=== PATIENT | female | born 1935 | race Caucasian/White ===

== ENCOUNTER 2019-07-07 10:51 | Inpatient (IN) | payer OTHER ==
[~2019-07-07] VITALS: Ht 157.5 cm; Wt 61.2 kg
--- NOTE | ~2019-07-07 | OP ---
[address] [address] OPERATIVE REPORT Name: CLINTKALA M Room: [address] IN .R.#: [id number] Admission: 07/07/19 Attend Phys: Clarita Mcdonald MD Discharge: Date of : 33 Report #: [id number] THIS REPORT FOR: //name// CC: Clarita Gibson DATE OF SERVICE: 07/07/2019 PREOPERATIVE DIAGNOSIS: Left femoral neck fracture, closed, displaced. POSTOPERATIVE DIAGNOSIS: Left femoral neck fracture, closed, displaced. PROCEDURE: Left sherrell-hip arthroplasty. SURGEON: Junior Flowers D.O. ASSISTANTS: 1. Samy Corea D.O. 2. Thanh Gomez D.O. ANESTHESIA: General. ANTIBIOTICS: Ancef IV preoperatively. FLUIDS: 800 mL lactated Ringer's. BLOOD LOSS: 250 mL. COMPLICATIONS: None. SPECIMENS: None. DRAINS: None. CONDITION: The patient is stable to PACU. IMPLANTS: Biomet bipolar with size 9 Taperloc stem; standard-offset, standard-length 45-mm bipolar head and a 28-mm head component, +3 neck adapter. INDICATIONS FOR PROCEDURE: The patient was admitted to [facility] with left hip fracture after a mechanical fall. Our consultation was requested, recommended sherrell-hip arthroplasty. She was cleared by medical team. I went over the diagnosis, treatment options, plan of surgery and risks, benefits, and complications in detail. Please see the consultation note for full details of the discussion had. We obtained written consent to proceed after they acknowledged and [place] [address] OPERATIVE REPORT Name: KALA JARAMILLO Sondra Room: [address] IN M.R.#: [id number] Admission: 07/07/19 Attend Phys: Clarita Mcdonald MD Discharge: Date of : 33 Report #: [id number] DESCRIPTION OF PROCEDURE: I marked the left lower extremity in the presence of the operative team members. Everyone agreed this was correct. She was taken back to the operative suite where a briefing was performed indicating correct patient, procedure, site, antibiotics and that implants were present and sterile. All team members agreed. General anesthetic was administered. She was then transferred over to the operative table. She was placed in the right lateral decubitus position, well-padded and secured. The left lower extremity was sterilely prepped and draped in standard fashion. Timeout was performed indicating correct patient, procedure, site, antibiotics and that implants were present and sterile. All team members agreed. Marked out an incision for an anterolateral approach, scalpel through skin, dissection down to full-thickness flaps to the IT band and fascial layers incised this with a secondary scalpel and completed proximally and distally with scissors. Charnley retractor placed deep. She had already torn the medius tendon completely off the trochanter with some minor retraction. The minimus tendon remained attached. We continued incising this off. We did leave some attached to the tip of the trochanter. The capsule was incised with a secondary layer with a T capsulotomy. We then delivered the fracture into the field 1 fingerbreadth above the lesser trochanter. We cleaned up the neck cut with a reciprocating saw. We then removed the head and neck sized on the back table to 45. Forty-five was placed into the acetabulum and had excellent fit and fill and good suction. The labrum was left intact. We then removed our trial head and began preparing the femur, box osteotome to lateralize our canal finder, broaching up to a size 9. Size 9 had excellent fit, fill and rotational stability. We trialed off that size 9, standard neck offset and a standard neck length, 45 bipolar. She had good fit and fill with this by checking her leg lengths, by judging off the inferior pole of the patella with the feet equal. She was somewhat short and she did have some instability when taking the leg into drop-down position. Prior to dislocating the components, we had also performed a shuck test showing that her offset was appropriate. We then dislocated the hip, removed all trial components. The final size 9 stem was thrown on to the back table, standard offset, standard length. After an implant timeout confirmed, we irrigated with normal saline down the canal. I implanted the final stem. The final stem sat at the exact same location as the trial. We, therefore, trialed a +3. Once we had reduced this, our leg lengths were more appropriate and equal and there was excellent stability throughout all planes of range of motion. We then dislocated the hip, removed the trial head and neck. Final 45-mm bipolar and 28 head and ____ adapter were assembled, impacted and engaging the Abad taper. With all final components in place, we then reduced the hip again through full range of motion, excellent stability throughout all planes. No instability could be found. Leg lengths were judged to be excellent based on judgment of the inferior pole of patella and the big flap. We irrigated thoroughly with normal saline. Closed our capsule layer with #1 Vicryl xijjia-sk-fetic interrupted. We repaired the gluteus minimus back to bone with a #5 Tycron suture through bone sutures and oversewn with #1 Vicryl[place] [address] OPERATIVE REPORT Name: KALA JARAMILLO Room: [address] IN M.R.#: [id number] Admission: 07/07/19 Attend Phys: Clarita Mcdonald MD Discharge: Date of : 33 Report #: [id number] layer were closed with #1 Vicryl xamovb-se-ntfyo interrupted and then oversewn with #1 Stratafix, irrigated the subcutaneous layer with normal saline and this was closed with 0 Vicryl running suture deep, 2-0 Monocryl buried deep subQ, and then a running subcuticular stitch with Stratafix. Debriefing performed where we confirmed procedure, blood loss and that all counts were correct and final all team members agreed. Dermabond glue applied. Sterile Mepilex dressing placed. She was transferred off the operative table back onto her bed in the supine position. By judging her leg lengths, she was equal. We then placed an adductor pillow. She was transferred to PACU after being extubated successfully in stable condition. POSTOPERATIVE COURSE AND EVALUATION: I spoke with her family, addressed any questions they had. They are very thankful for my time and efforts. She was resting in PACU with stable vital signs, pain controlled, neurovascularly intact in all her extremities. Dressing clean, dry and intact. PACU films showed stable prosthesis in good position and alignment. No obvious evidence of fracture, dislocation or pathologic process. She will be weightbear as tolerated. Anterolateral hip precautions. DVT prophylaxis will be pharmacological and mechanical. She is going back to the telemetry unit. We noted by the medical team and encouraged them to call anytime with questions or concerns. Case management will also help with discharge planning. It should be noted that I will be in other hospitals, and I directly went over this case with my partners, and they know they can call anytime with questions or concerns, that they will be covering for me in regards to rounds if I could not make it back up to the hospital. By: 1825 [id number] Flowers DO /nt
--- NOTE | ~2019-07-07 | PROC ---
[address] [address] PROCEDURE REPORT Name: KALA JARAMILLO Room: [address] IN M.R.#: [id number] Admission: 07/07/19 Attend Phys: Clarita Mcdonald MD Discharge: Date of : 33 Report #: [id number] THIS REPORT FOR: //name// For GI report, Please see Provation report in Perceptive 7 content. By: 0643Medical Records Staff LINWOOD /CLEM
[~2019-07-07 10:51] MED LIST: D3 + K2 DOTS 11 EACH PO; LEVOTHYROXIN0.088 MG PO; NORCO 5-325 TA1 EACH PO; ONE A DAY VITAMIN; TUMS PO
[2019-07-07 11:00] VITALS: BP 132/69
[2019-07-07 11:13] LABS: ABSOLUTE EOSINOPHILS 0.2 thou/uL (0.0-0.7); ABSOLUTE LYMPHOCYTES 1.6 thou/uL (0.8-5.3); ABSOLUTE MONOCYTES 0.4 thou/uL (0.0-1.2); ABSOLUTE NEUTROPHILS 2.9 thou/uL (1.6-8.1); BASOPHILS 0.8 %; EOSINOPHILS 2.9 %; HEMATOCRIT 40.8 % (37.0-47.0); HEMOGLOBIN 13.3 gm/dL (12.0-15.0); LYMPHOCYTES 32.1 %; MCH 30.5 pg (26.0-34.0); MCHC 32.6 g/dL (28.0-37.0); MCV 93.6 fL (80.0-100.0); MONOCYTES 7.5 %; MPV 7.1 fl. (7.2-11.1); NUCLEATED RBCS 0 /100WBC; PLATELET COUNT* 329 thou/uL (150-400); POLYS 56.7 %; RBC 4.36 mil/uL (4.20-5.00); RDW-CV 14.1 % (10.5-14.5); WBC 5.1 thou/uL (4.0-11.0)
[2019-07-07 11:26] LABS: ANION GAP 8 mmol/L (7-16); BUN 21 mg/dL (7-18); CALCIUM 8.6 mg/dL (8.5-10.1); CHLORIDE 105 mmol/L (98-107); CO2 27 mmol/L (21-32); CREATININE 0.8 mg/dL (0.6-1.3); GLUCOSE 124 mg/dL (70-99); POTASSIUM 3.5 mmol/L (3.5-5.1); SODIUM 140 mmol/L (136-145)
[2019-07-07 11:32] LABS: ALBUMIN 3.5 g/dL (3.4-5.0); ALKALINE PHOSPHATASE 77 U/L (46-116); SGOT 23 U/L (15-37); SGPT 22 U/L (30-65); TOTAL BILIRUBIN 0.7 mg/dL (<0.1-1.0); TOTAL PROTEIN 6.8 g/dL (6.4-8.2); TROPONIN-I LEVEL <0.06 ng/mL (<0.06)
[2019-07-07 12:05] LABS: URINE BILIRUBIN NEGATIVE (Negative); URINE BLOOD NEGATIVE (Negative); URINE CLARITY CLEAR; URINE COLOR YELLOW; URINE GLUCOSE-RANDOM NEGATIVE (Negative); URINE KETONES TRACE (Negative); URINE LEUKOCYTES-REFLEX 1+ (Negative); URINE NITRITE-REFLEX POSITIVE (Negative); URINE PROTEIN NEGATIVE (Negative); URINE SPECIFIC GRAVITY 1.025 (1.005-1.030); URINE UROBILINOGEN 0.2 E.U./dl (0.2-1.0)
[2019-07-07 12:15] LABS: BACTERIA-REFLEX >30 Many /HPF (None Seen); CASTS None Seen /LPF (None Seen); CRYSTALS None Seen /LPF (None Seen); MUCUS 0-3 Light strn/LPF (None Seen); SQUAMOUS 0-3 Few /LPF (0-3); URINE RBC 0-2 Rare /HPF (0-2)
[2019-07-07 12:20] VITALS: BP 132/69
[2019-07-07 12:50] VITALS: BP 142/69
[2019-07-07 13:57] VITALS: BP 106/61
--- NOTE | 2019-07-07 16:45 | 2DMMODE ---
[place] [address] 2 D/M-MODE ECHOCARDIOGRAM Name: KALA JARAMILLO Room: [address] IN [facility]#: [id number] Admission: 07/07/19 Attend Phys: Clarita Mcdonald, Discharge: Date of : 31 Date of Service: 07/07/19 1645 Report #: [id number] THIS REPORT FOR: //name// APPROVED REPORT Study performed: 07/07/2019 13:55:07 EXAM: Comprehensive 2D, Doppler, and color-flow Echocardiogram Patient Location: In-Patient Room #: [facility] Status: routine BSA: 1.63 HR: 69 bpm BP: 142/69 mmHg Rhythm: NSR Other Information Study Quality: Good Indications Abnormal ECG Pre-Op 2D Dimensions IVSd: 12.43 (7-11mm) LVOT Diam: 17.72 (18-24mm) LVDd: 43.26 mm PWd: 11.30 (7-11mm) Ascending Ao: 36.04 (22-36mm) LVDs: 23.47 (25-40mm) Aortic Root: 34.35 mm Volumes Left Atrial Volume (Systole) LA ESV Index: 31.90 mL/m2 Aortic Valve AoV Peak Gustavo.: 1.59 m/s AO Peak Gr.: 10.10 mmHg LVOT Max P.77 mmHg AO Mean Gr.: 4.94 mmHg LVOT Mean P.57 mmHg LVOT Max V: 0.97 m/s AO V2 VTI: 26.33 cm LVOT Mean V: 0.57 m/s RICARDO (VTI): 2.34 cm2 LVOT V1 VTI: 24.95 cm Mitral Valve E/A Ratio: 0.86 MV Decel. Time: 168.33 [place] [address] 2 D/M-MODE ECHOCARDIOGRAM Name: KALA JARAMILLO Room: [address] IN .R.#: [id number] Admission: 07/07/19 Attend Phys: Clarita Mcdonald, Discharge: Date of : 31 Date of Service: 07/07/19 1645 Report #: [id number] MV E Max Gustavo.: 0.90 m/s MV PHT: 48.82 ms MVA (PHT): 4.51 cm2 TDI E/Lateral E': 8.18 E/Medial E': 6.92 Medial E' Gustavo.: 0.13 m/s Lateral E' Gustavo.: 0.11 m/s Pulmonary Valve PV Peak Gustavo.: 0.86 m/s PV Peak Gr.: 2.97 mmHg Tricuspid Valve RAP Estimate: 5.00 mmHg TR Peak Gr.: 31.61 mmHg RVSP: 36.00 mmHg PA Pressure: 36.00 mmHg Left Ventricle The left ventricle is normal size. There is normal LV segmental wall motion. Mild concentric left ventricular hypertrophy. Left ventricular systolic function is normal. The left ventricular ejection fraction is within the normal range. LVEF is 60-65%. Grade I - abnormal relaxation pattern. Right Ventricle The right ventricle is normal size. The right ventricular systolic function is normal. Atria Left atrium is mildly dilated. The right atrium size is normal. Aortic Valve Mild aortic valve sclerosis. No aortic regurgitation is present. There is no aortic valvular stenosis. Mitral Valve The mitral valve is normal in structure. There is no mitral valve regurgitation noted. No evidence of mitral valve stenosis. Tricuspid Valve The tricuspid valve is normal in structure. Mild tricuspid regurgitation. Mild pulmonary hypertension. Pulmonic Valve The pulmonary valve is normal in structure[place] [address] 2 D/M-MODE ECHOCARDIOGRAM Name: KALA JARAMILLO Sondra Room: [address]#: [id number] Admission: 07/07/19 Attend Phys: Clarita Mcdonald, Discharge: Date of : 31 Date of Service: 07/07/19 1645 Report #: [id number] regurgitation. Great Vessels The aortic root is normal in size. IVC is normal in size and collapses >50% with inspiration. Pericardium There is no pericardial effusion. <Conclusion> The left ventricle is normal size. Mild concentric left ventricular hypertrophy. Left ventricular systolic function is normal. The left ventricular ejection fraction is within the normal range. LVEF is 60-65%. Grade I - abnormal relaxation pattern. The right ventricle is normal size. Left atrium is mildly dilated. The right atrium size is normal. Mild aortic valve sclerosis. No aortic regurgitation is present. There is no aortic valvular stenosis. The mitral valve is normal in structure. The tricuspid valve is normal in structure. IVC is normal in size and collapses >50% with inspiration. There is no pericardial effusion. There is normal LV segmental wall motion. <ELECTRONICALLY SIGNED> By: Eliseo Carey MD, FACC 07/07/19 1645 44 44 Eliseo Carey MD, FACC /INF
[2019-07-07 18:45] VITALS: BP 146/87
[2019-07-07 20:00] VITALS: BP 120/65
[2019-07-08] VITALS: BP 104/60
[2019-07-08 04:00] VITALS: BP 105/48
[2019-07-08 04:24] LABS: HEMOGLOBIN 11.9 gm/dL (12.0-15.0); MCH 30.9 pg (26.0-34.0); MCHC 32.3 g/dL (28.0-37.0); MCV 95.6 fL (80.0-100.0); MPV 7.6 fl. (7.2-11.1); RBC 3.86 mil/uL (4.20-5.00); RDW-CV 14.3 % (10.5-14.5); WBC 8.7 thou/uL (4.0-11.0)
[2019-07-08 04:47] LABS: ALBUMIN 2.9 g/dL (3.4-5.0); CALCIUM 7.8 mg/dL (8.5-10.1); CREATININE 0.8 mg/dL (0.6-1.3); MAGNESIUM 2.1 mg/dL (1.8-2.4); TOTAL BILIRUBIN 0.6 mg/dL (<0.1-1.0)
[2019-07-08 08:00] VITALS: BP 92/57
--- NOTE | 2019-07-08 09:23 | EKG ---
[place] [address] ELECTROCARDIOGRAM REPORT Name: KALA JARAMILLO Room: [address] ADM IN M.R.#: [id number] Admission: 07/07/19 Attend Phys: Clarita Mcdonald MD Discharge: Date of : 33 Report #: [id number] THIS REPORT FOR: //name// 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 : 1935 Requested By: Meena Jean Order Number: [id number] MD: Chava Oliveira Measurements Intervals [place] Rate: 90 P: -86 [place]: 172 QRS: -21 QRSD: 87 T: 35 QT: 380 QTc: 465 Interpretive Statements Sinus rhythm with frequent PACs Borderline left axis deviation Consider anteroseptal infarct, old Compared to ECG 08/22/2015 18:23:11 Atrial premature complex(es) now present Myocardial infarct finding now present ST (T wave) deviation no longer present Electronically Signed On 07-08-2019 9:23:40 CDT by Chava Oliveira [email or web address] <ELECTRONICALLY SIGNED> By: Chava Oliveira MD, FACC 07/08/19 0923 1100 1100 Chava Oliveira MD, FACC /EPI
[2019-07-08 12:00] VITALS: BP 102/46
[2019-07-08 21:00] VITALS: BP 142/64
[2019-07-09 05:31] LABS: HEMATOCRIT 37.3 % (37.0-47.0)
[2019-07-09 08:10] VITALS: BP 114/85
[2019-07-09 17:01] VITALS: BP 123/48
[2019-07-10 08:00] VITALS: BP 137/66
[2019-07-10 22:00] VITALS: BP 132/58
[2019-07-11 08:00] VITALS: BP 150/72
[2019-07-11 16:00] VITALS: BP 113/54
[2019-07-11 19:50] VITALS: BP 106/45
[2019-07-12 09:13] VITALS: BP 138/93
[2019-07-12 09:32] LABS: URINE BLOOD NEGATIVE (Negative); URINE CLARITY CLEAR; URINE COLOR DARK YELLOW; URINE GLUCOSE-RANDOM NEGATIVE (Negative); URINE KETONES TRACE (Negative); URINE NITRITE-REFLEX NEGATIVE (Negative); URINE PROTEIN 1+ (Negative); URINE SPECIFIC GRAVITY 1.015 (1.005-1.030)
[2019-07-12 09:35] LABS: URINE BILIRUBIN 1+ (Negative); URINE LEUKOCYTES-REFLEX 3+ (Negative)
[2019-07-12 09:39] LABS: ICTOTEST (BILI CONFIRMATORY) Negative (Negative)
[2019-07-12 09:45] LABS: SQUAMOUS >10 Many /LPF (0-3); URINE RBC None Seen /HPF (0-2)
[2019-07-12 09:46] LABS: BACTERIA-REFLEX >30 Many /HPF (None Seen); CRYSTALS None Seen /LPF (None Seen)
[2019-07-12 09:47] LABS: MUCUS >6 Heavy strn/LPF (None Seen)
[2019-07-12 09:48] LABS: HYALINE CASTS 0-3 Few /LPF (None Seen)
[2019-07-12 16:00] VITALS: BP 144/82
[2019-07-12 20:58] VITALS: BP 132/70
[2019-07-13 10:02] VITALS: BP 132/68
[2019-07-13 16:06] VITALS: BP 131/79
[2019-07-13 21:33] VITALS: BP 125/52
[2019-07-13 22:40] VITALS: BP 137/70
[2019-07-14 04:00] VITALS: BP 155/81
[2019-07-14 08:00] VITALS: BP 129/71
[2019-07-14 12:03] VITALS: BP 120/4
--- NOTE | 2019-07-14 14:36 | EKG ---
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1935 Requested By: Clarita Mcdonald Order Number: [id number] Reading MD: Oc Mendoza Measurements Intervals [place] Rate: 78 P: 18 [place]: 117 QRS: -25 QRSD: 81 T: 41 QT: 373 QTc: 425 Interpretive Statements Sinus rhythm Atrial premature complex Borderline short OK interval LVH by voltage Anterior Q waves, possibly due to LVH Compared to ECG 07/07/2019 11:00:25 Left ventricular hypertrophy now present Electronically Signed On 07-14-2019 14:35:55 CDT by Oc Mendoza [email or web address] <ELECTRONICALLY SIGNED> By: Oc Mendoza MD, FAC 07/14/19 1435 1154 1154 Oc Mendoza MD, [facility] /EPI
[2019-07-14 16:55] VITALS: BP 131/71
[2019-07-14 20:10] VITALS: BP 131/60
[2019-07-15] VITALS: BP 107/47
[2019-07-15 04:00] VITALS: BP 100/48
[2019-07-15 04:25] LABS: HEMATOCRIT 34.6 % (37.0-47.0); HEMOGLOBIN 11.1 gm/dL (12.0-15.0); MCH 30.8 pg (26.0-34.0); MCHC 32.2 g/dL (28.0-37.0); MCV 95.7 fL (80.0-100.0); MPV 7.3 fl. (7.2-11.1); RBC 3.62 mil/uL (4.20-5.00); RDW-CV 14.1 % (10.5-14.5); WBC 6.2 thou/uL (4.0-11.0)
[2019-07-15 04:41] LABS: CALCIUM 8.3 mg/dL (8.5-10.1); CREATININE 0.8 mg/dL (0.6-1.3); MAGNESIUM 2.2 mg/dL (1.8-2.4); POTASSIUM 4.2 mmol/L (3.5-5.1)
[2019-07-15 08:00] VITALS: BP 99/63
--- NOTE | 2019-07-15 10:45 | CON ---
[address] [address] CONSULTATION Name: KALA JARAMILLO Room: [address] IN M.R.#: [id number] Admission: 07/07/19 Attend Phys: Clarita Mcdonald MD Discharge: Date of : 33 Report #: [id number] THIS REPORT FOR: //name// CC: Clarita Gibson DATE OF SERVICE: 07/12/2019 HISTORY OF PRESENT ILLNESS: This is an 84-year-old female patient who was evaluated by me for memory problems. The provided history. The patient does not remember much. It looks like the patient's symptoms started about 2 years ago. It appeared to have started with short-term memory loss. The gives an example that she will ask a question and they will answer that question and she will ask the same question again. She basically has repetition, and from the history, it looks like it was mainly for the short-term memory. It started spontaneously without any trauma and then progressed slowly over a period of time. She broke her hip and she underwent anesthesia. She was pretty confused after anesthesia. She became somewhat better, but then became confused again. She has been fluctuating. She has not had any workup for dementia as an outpatient. She is not on any medications for dementia. REVIEW OF SYSTEMS: Her 14-point review of system was carried out with the . It looks like the patient has a history consistent with dementia. She also has a shoulder problem. It looks like it is longstanding. They indicated that she has a shoulder problem for a couple of years. She had a knee replaced several years ago. She had a history of carpal tunnel surgery and hypothyroidism the way I understand. She is not complaining of any new eye, ENT, cardiac, respiratory, GI, , constitutional, dermatological, hematological, psychiatric, throat, allergic symptoms associated with present symptomatology. PAST MEDICAL HISTORY: Positive for what looks like dementia for 1 year. FAMILY HISTORY: Unremarkable. SOCIAL HISTORY: She has a prior history of smoking. She does not drink any alcohol. PHYSICAL EXAMINATION: NEUROLOGIC: Indicate she is alert, responsive, able to follow simple and complex command, but she is disoriented. She does not know what month it, who the president is and what hospital she is in. [place] [address] CONSULTATION Name: KALA JARAMILLO Room: [address]#: [id number] Admission: 07/07/19 Attend Phys: Clarita Mcdonald MD Discharge: Date of : 33 Report #: [id number] nerve examination 2-12 looks unremarkable. She moves all 4 extremities. Movement in the right shoulder is significantly restricted. Neuromuscular examination is difficult because of the patient's hip surgery, but position sense looks intact. Tone looks symmetrical and reflexes the best it could be looks symmetrical. Myklym-wh-bvhb looks unremarkable. No cerebellar signs were detected. Pulses appeared to be palpable. SKIN: There is no edema, cyanosis or jaundice. CARDIAC: Examinations appear unremarkable. RESPIRATORY: No respiratory difficulty or rhonchi was noticed. VITAL SIGNS: Blood pressure is 144/82, respirations 17, pulse is 84, temperature 97.8. LABORATORY DATA: White count is 8.7. Her calcium is only 7.8, but TSH and vitamin B12 is normal. IMPRESSION: This patient's clinical presentation is consistent with dementia. It got decompensated with surgery as well as anesthesia and that is typical. She never had any imaging study of the brain and it may be desirable to do a CT scan of the head to make sure there is no treatable cause for dementia. She already has a TSH and vitamin B12 checked. She has a shoulder problem on the right side, but that is longstanding. I discussed the situation with the . I told them that she can be tried on Aricept, Namenda, or Exelon, but that should be done as an outpatient after she recuperates from present condition. I will get a CT and an EEG done. I discussed the procedure and they want to do that. We will get it done tomorrow, and if that is okay, the patient can follow up with us as an outpatient after she recuperates from her surgery and we can start her on Namenda or Exelon or a combination of both. She can be started in group home facility also. Thank you very much for this referral, and if you have any questions, please feel free to contact me. <ELECTRONICALLY SIGNED> By: Carlos Valdez MD 07/15/19 1045 01 [id number] Valdez MD /nt
--- NOTE | 2019-07-15 10:45 | EEG ---
[address] [address] EEG STUDY REPORT Name: KALA JARAMILLO Room: [address] IN M.R.#: [id number] Admission: 07/07/19 Attend Phys: Clarita Mcdonald MD Discharge: Date of : 33 Report #: [id number] THIS REPORT FOR: //name// CC: Clarita Gibson DATE OF SERVICE: 07/13/2019 This patient is being evaluated for altered mental status. EEG was done by placing the electrode by standard 10-20 system of electrode placement. Both referential and sequential montages were used for recording. Background activity in this patient's EEG is about 8 Hz and 30 microvolt. It is intermixed with theta range slowing. The patient became drowsy and that is associated with bilateral slowing and vertex sharp waves. Photic stimulation is unremarkable. Throughout the record, no active epileptiform activity was noticed. IMPRESSION: This EEG is intermixed with some theta range slowing on both sides. That is a nonspecific abnormality, which can occur with encephalopathy, drowsiness, effect of psychotropic medication, dementia, etc. Clinical correlation is recommended. <ELECTRONICALLY SIGNED> By: Carlos Valdez MD 07/15/19 1045 1513 1719Carlos Valdez MD /nt
[2019-07-15 11:30] VITALS: BP 112/59
[2019-07-15 16:00] VITALS: BP 149/89
[2019-07-15 20:10] VITALS: BP 97/52
[2019-07-16] VITALS: BP 116/77
[2019-07-16 04:00] VITALS: BP 124/54
[2019-07-16 12:11] VITALS: BP 100/56
[2019-07-16 15:43] VITALS: BP 114/69
[2019-07-16 19:30] VITALS: BP 141/60
[2019-07-16 20:08] LABS: HEMATOCRIT 39.4 % (37.0-47.0); HEMOGLOBIN 12.7 gm/dL (12.0-15.0)
[2019-07-16 23:54] LABS: HEMATOCRIT 34.7 % (37.0-47.0); HEMOGLOBIN 11.4 gm/dL (12.0-15.0)
[2019-07-17] VITALS: BP 117/93; BP 143/46
[2019-07-17 04:00] VITALS: BP 130/62
[2019-07-17 04:58] LABS: HEMATOCRIT 38.4 % (37.0-47.0); HEMOGLOBIN 12.2 gm/dL (12.0-15.0); MCH 30.2 pg (26.0-34.0); MCHC 31.8 g/dL (28.0-37.0); MCV 95.1 fL (80.0-100.0); MPV 6.9 fl. (7.2-11.1); RBC 4.04 mil/uL (4.20-5.00); WBC 8.1 thou/uL (4.0-11.0)
[2019-07-17 05:07] LABS: CALCIUM 8.3 mg/dL (8.5-10.1); CREATININE 0.7 mg/dL (0.6-1.3); MAGNESIUM 2.1 mg/dL (1.8-2.4); POTASSIUM 3.7 mmol/L (3.5-5.1)
[2019-07-17 11:53] VITALS: BP 128/70
[2019-07-17 16:47] VITALS: BP 103/65
[2019-07-17 18:13] LABS: HEMATOCRIT 36.7 % (37.0-47.0)
[2019-07-17 21:07] VITALS: BP 120/57
[2019-07-18 04:00] VITALS: BP 156/60
[2019-07-18 05:26] LABS: HEMATOCRIT 35.1 % (37.0-47.0); HEMOGLOBIN 11.4 gm/dL (12.0-15.0); MCH 30.7 pg (26.0-34.0); MCHC 32.5 g/dL (28.0-37.0); MCV 94.7 fL (80.0-100.0); MPV 6.6 fl. (7.2-11.1); RBC 3.7 mil/uL (4.20-5.00); RDW-CV 13.9 % (10.5-14.5); WBC 6.5 thou/uL (4.0-11.0)
[2019-07-18 05:42] LABS: CALCIUM 8.7 mg/dL (8.5-10.1); CREATININE 0.8 mg/dL (0.6-1.3); MAGNESIUM 2.3 mg/dL (1.8-2.4)
[2019-07-18 08:00] VITALS: BP 119/56
[2019-07-18 11:08] LABS: URINE BILIRUBIN NEGATIVE (Negative); URINE BLOOD NEGATIVE (Negative); URINE CLARITY CLEAR; URINE COLOR YELLOW; URINE GLUCOSE-RANDOM NEGATIVE (Negative); URINE KETONES TRACE (Negative); URINE LEUKOCYTES-REFLEX 1+ (Negative); URINE NITRITE-REFLEX NEGATIVE (Negative); URINE PROTEIN NEGATIVE (Negative); URINE SPECIFIC GRAVITY 1.025 (1.005-1.030); URINE UROBILINOGEN 0.2 E.U./dl (0.2-1.0)
[2019-07-18 11:24] LABS: SQUAMOUS >10 Many /LPF (0-3)
[2019-07-18 11:25] LABS: URINE WBC-REFLEX 6-15 Few /HPF (0-5)
[2019-07-18 11:26] LABS: MUCUS >6 Heavy strn/LPF (None Seen); URINE RBC 0-2 Rare /HPF (0-2)
[2019-07-18 11:27] LABS: CRYSTALS None Seen /LPF (None Seen); HYALINE CASTS 0-3 Few /LPF (None Seen); YEAST-REFLEX Present (None Seen)
[2019-07-18 12:00] VITALS: BP 108/51
[2019-07-18 16:00] VITALS: BP 106/53
[2019-07-18 20:00] VITALS: BP 105/46
[2019-07-19] VITALS: BP 99/62
[2019-07-19 04:00] VITALS: BP 115/50
[2019-07-19 07:25] LABS: HEMATOCRIT 35.9 % (37.0-47.0); HEMOGLOBIN 11.7 gm/dL (12.0-15.0); MCH 30.8 pg (26.0-34.0); MCHC 32.5 g/dL (28.0-37.0); MCV 94.7 fL (80.0-100.0); MPV 7.1 fl. (7.2-11.1); RBC 3.79 mil/uL (4.20-5.00); RDW-CV 13.8 % (10.5-14.5); WBC 7.4 thou/uL (4.0-11.0)
[2019-07-19 07:40] LABS: CALCIUM 8.2 mg/dL (8.5-10.1); CREATININE 0.8 mg/dL (0.6-1.3); POTASSIUM 3.7 mmol/L (3.5-5.1)
[2019-07-19 08:00] VITALS: BP 117/58
[2019-07-19 12:10] VITALS: BP 117/58
[2019-07-19 12:55] VITALS: BP 161/74
[2019-07-19 20:00] VITALS: BP 121/53
[2019-07-20] VITALS: BP 121/49
[2019-07-20 04:00] VITALS: BP 110/45
[2019-07-20 08:00] VITALS: BP 113/84
[2019-07-20 12:20] VITALS: BP 96/46
[2019-07-20 16:40] VITALS: BP 115/53
[2019-07-20 21:09] VITALS: BP 132/55
[2019-07-21] VITALS: BP 136/67
[2019-07-21 04:00] VITALS: BP 146/69
[2019-07-21 04:50] LABS: HEMATOCRIT 35.1 % (37.0-47.0); HEMOGLOBIN 11.3 gm/dL (12.0-15.0); MCH 30.8 pg (26.0-34.0); MCHC 32.3 g/dL (28.0-37.0); MCV 95.3 fL (80.0-100.0); MPV 7.5 fl. (7.2-11.1); RBC 3.68 mil/uL (4.20-5.00); RDW-CV 13.9 % (10.5-14.5); WBC 9.5 thou/uL (4.0-11.0)
[2019-07-21 05:00] LABS: CALCIUM 8.6 mg/dL (8.5-10.1); CREATININE 0.6 mg/dL (0.6-1.3); POTASSIUM 3.9 mmol/L (3.5-5.1)
[2019-07-21 07:00] VITALS: BP 122/58
[2019-07-21] MEDS ORDERED: COLACE 100 MG100 MG PO (11:42)
[2019-07-21] MEDS ORDERED: FLUCONAZOLE 10100 MG PO (11:42)
[2019-07-21] MEDS ORDERED: PROTONIX40 M1 PO (11:42)
[2019-07-21] MEDS ORDERED: LOPRESSOR25 PO (11:42)
[2019-07-21] MEDS ORDERED: ELIQUIS5 MG PO ×2 (11:42→11:46)
[2019-07-21] MEDS ORDERED: RISPERIDONE 1 MG1 MG PO (11:42)
[2019-07-21] MEDS ORDERED: ACETAMINOPHEN325 M1 PO (11:42)
[2019-07-21] MEDS ORDERED: FOSAMAX 70 MG T70 MG PO (11:44)
[2019-07-21 13:01] VITALS: BP 113/52
--- NOTE | 2019-07-21 14:06 | PATH ---
[facility] [address] [place] [address] PATHOLOGY RPT PROCEDURE Name: CARLENE JARAMILLO Room: [address] IN ..#: [id number] Admission: 07/07/19 Date of : 33 Discharge: Report #: [id number] Path Case #: [id number] [facility] Accession Number: [id number] . 01 Material submitted: . esophagus - BARRETTS ESOPHAGUS RULE OUT DYSPLASIA . 01 Clinical history: . Rule out dysplasia . 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 (CHARLY/db; 07/21/2019) LBQ/07/21/2019 . 02 Electronically signed: . Ean Willis MD, Pathologist NPI- [id number] . 01 Gross description: . The specimen is received in formalin, labeled "Todt, Carlene, Azar's esophagus" and consists of 2 fragments of marti tissue measuring 0.2 x 0.2 cm and 0.3 x 0.2 cm which are entirely submitted in A1. (SDY; 07/20/2019) SYU/SYU . 02 Pathologist provided ICD-10: K22.70, K20.9 . 02 CPT . 312274 Specimen Comment: A courtesy copy of this report has been sent to Specimen Comment: [phone], , . Specimen Comment: Report sent to ,DR MARTIN / DR العراقي Performed at: [address], [place], [place] [address] MD Obinna Crockett MD Phone: [phone] Performed at: [address] [facility] [address], [place], [place] [id number] MD Ean Willis MD Phone: [phone]
[2019-07-21 16:27] VITALS: BP 99/61
[2019-07-21 20:29] VITALS: BP 121/64
[2019-07-22] VITALS: BP 146/54
[2019-07-22 04:00] VITALS: BP 119/59
[2019-07-22 07:00] VITALS: BP 120/57
[2019-07-22 11:28] VITALS: BP 150/72
[2019-07-22] MEDS ORDERED: NORCO 5-325 TA1 EAC1 PO (13:48)
[2019-07-22 13:53] VITALS: BP 150/72
--- NOTE | 2019-07-22 14:07 | CON ---
[address] [address] CONSULTATION Name: KALA JARAMILLO Room: [address] IN .R.#: [id number] Admission: 07/07/19 Attend Phys: Clarita Mcdonald MD Discharge: Date of : 33 Report #: [id number] THIS REPORT FOR: //name// CC: Clarita Gibson DATE OF SERVICE: 07/17/2019 REASON FOR CONSULT: Blood in stool. HISTORY OF PRESENT ILLNESS: This is an 84-year-old female with recent history of left femur fracture, who underwent a repair and yesterday was noted to have rectal bleeding. Her hemoglobin never dropped and remains around 12. She has what appears to be dark maroon stool. She is also hemodynamically stable. The patient had a colonoscopy by my colleague, Dr. Garrett back in 11/2014 where there was a bleeding episode. No source of bleeding was found at that time. She had diffuse pandiverticulosis, which was noted in that colonoscopy. Her WAP-gi-mzpckulntf ratio as of yesterday was almost 35. She was given Eliquis after her surgery, which most probably prompted her bleeding. She currently denies any GI symptoms as she denies nausea, vomiting, dyspepsia, GERD, diarrhea or constipation. PAST MEDICAL HISTORY: Significant for recent history of left hip fracture, hypothyroidism, history of arthroscopy of right and left in 2006. Carpal tunnel surgery and history of GI bleeds in the past. ALLERGIES: No known drug allergy. MEDICATIONS: Please refer to MAR. SOCIAL HISTORY: The patient lives at home. She is mildly demented. The is by her bedside and there is no history of tobacco or alcohol use. FAMILY HISTORY: Noncontributory. PHYSICAL EXAMINATION: VITAL SIGNS: Reveals blood pressure of 128/70, respirations 18, pulse 92 and temperature 97.4. LUNGS: Clear. CARDIOVASCULAR: Regular. ABDOMEN: Soft, nontender, nondistended. Bowel sounds are positive. NEUROLOGIC: The patient is alert and oriented. LABORATORY DATA: Labs revealed sodium of 140, potassium 3.7, BUN is 24, [place] [address] CONSULTATION Name: KALA JARAMILLO Sondra Room: [address] IN [facility]#: [id number] Admission: 07/07/19 Attend Phys: Clarita Mcdonald MD Discharge: Date of : 33 Report #: [id number] creatinine 0.7, AST 24, ALT 22 with alkaline phosphatase of 62, total bilirubin 0.6 and albumin is 2.9. WBC is 8.1 with hemoglobin of 12.2 and platelets of 560. ASSESSMENT AND PLAN: The patient with his previous history of GI bleed and endoscopic evaluation back in 2014, which was unrevealing. She is having maroon stool and her PWM-sm-wercnafupp ratio is more than 30. She also has been on Eliquis due to her hip fracture. We have hold Eliquis and consider Protonix 40 b.i.d. I will consider an upper endoscopy on Friday. Meanwhile, continue monitoring her H and H as her most recent hemoglobin has been 12. <ELECTRONICALLY SIGNED> By: Magdi Sparrow MD 07/22/19 1407 1243 1941Magdi Sparrow MD /nt
== END 2019-07-22 15:40 | DRG 469 ==
LOC: M.ERS 10:51 → M.ORTHSURG 11:44 → M.TBA-ER 11:44 → M.2W 11:44 → M.ORTHSURG 12:20 → M.2W 13:44 → M.ORTHSURG 07-08 19:34 → M.2W 07-13 21:55
PROVIDERS: Family Medicine; Internal Medicine Gastroenterology; Orthopaedic Surgery; Personal Emergency Response Attendant; ADMIT Internal Medicine
PROC: 0SRS0JZ Replacement of Left Hip Joint, Femoral Surface with Synthetic Substitute, Open Approach (ICD-10-PCS; principal; 2019-07-07)
PROC: 0DB58ZX Excision of Esophagus, Via Natural or Artificial Opening Endoscopic, Diagnostic (ICD-10-PCS; 2019-07-19)
DX: M80.052A Age-related osteoporosis with current pathological fracture, left femur, initial encounter for fracture (principal); G92 Toxic encephalopathy; E43 Unspecified severe protein-calorie malnutrition; N39.0 Urinary tract infection, site not specified; I47.1 Supraventricular tachycardia; F05 Delirium due to known physiological condition; K92.1 Melena; R09.02 Hypoxemia; E03.9 Hypothyroidism, unspecified; F03.90 Unspecified dementia, unspecified severity, without behavioral disturbance, psychotic disturbance, mood disturbance, and anxiety; B96.20 Unspecified Escherichia coli [E. coli] as the cause of diseases classified elsewhere; I48.91 Unspecified atrial fibrillation; K44.9 Diaphragmatic hernia without obstruction or gangrene; K22.70 Barrett's esophagus without dysplasia; D50.9 Iron deficiency anemia, unspecified; Z87.891 Personal history of nicotine dependence; Z68.24 Body mass index [BMI] 24.0-24.9, adult

== ENCOUNTER 2020-12-17 15:17 | Emergency (ER) | payer OTHER ==
[~2020-12-17] VITALS: Ht 157.5 cm; Wt 62.6 kg
[~2020-12-17 15:17] MED LIST changes: +ACETAMINOPHEN325 M1 PO; +COLACE 100 MG100 MG PO; +ELIQUIS5 MG PO; +FLUCONAZOLE 10100 MG PO; +FOSAMAX 70 MG T70 MG PO; +LOPRESSOR25 PO; +NORCO 5-325 TA1 EAC1 PO; +PROTONIX40 M1 PO; +RISPERIDONE 1 MG1 MG PO
[2020-12-17 17:33] LABS: URINE BILIRUBIN NEGATIVE (Negative); URINE BLOOD 2+ (Negative); URINE CLARITY CLOUDY; URINE COLOR YELLOW; URINE GLUCOSE-RANDOM NEGATIVE (Negative); URINE KETONES NEGATIVE (Negative); URINE LEUKOCYTES-REFLEX 3+ (Negative); URINE NITRITE-REFLEX POSITIVE (Negative); URINE PROTEIN 1+ (Negative); URINE SPECIFIC GRAVITY 1.015 (1.005-1.030); URINE UROBILINOGEN 0.2 E.U./dl (0.2-1.0)
[2020-12-17 17:39] LABS: SQUAMOUS 4-10 Moderate /LPF (0-3)
[2020-12-17] MEDS ORDERED: KEFLEX500 M1 PO (17:40)
[2020-12-17 17:41] LABS: URINE WBC-REFLEX >25 Many /HPF (0-5)
[2020-12-17 17:42] LABS: BACTERIA-REFLEX >30 Many /HPF (None Seen); MUCUS 0-3 Light strn/LPF (None Seen); URINE RBC 3-10 Few /HPF (0-2)
[2020-12-17 17:43] LABS: CASTS None Seen /LPF (None Seen); CRYSTALS None Seen /LPF (None Seen)
[2020-12-17 17:56] VITALS: BP 125/68
== END 2020-12-17 17:56 | disposition home or self-care (01) ==
LOC: M.ERS 15:17
PROVIDERS: Physician Assistant
DX: S81.011A Laceration without foreign body, right knee, initial encounter (principal); S00.33XA Contusion of nose, initial encounter; N39.0 Urinary tract infection, site not specified; W01.0XXA Fall on same level from slipping, tripping and stumbling without subsequent striking against object, initial encounter; Y93.89 Activity, other specified; Y92.89 Other specified places as the place of occurrence of the external cause; Y99.8 Other external cause status

== ENCOUNTER 2022-01-08 15:24 | Emergency (ER) | payer OTHER ==
[~2022-01-08] VITALS: Ht 157.5 cm; Wt 63.5 kg
[~2022-01-08 15:24] MED LIST changes: +KEFLEX500 M1 PO
[2022-01-08] MEDS ORDERED: ARICEPT10 M1 PO (15:32)
[2022-01-08] MEDS ORDERED: ESCITALOPRA5 MG/5 ML PO (15:32)
[2022-01-08] MEDS ORDERED: CALCIUM CARBON500 MG PO (15:32)
[2022-01-08] MEDS ORDERED: VITAMIN C1000 MG PO (15:33)
[2022-01-08] MEDS ORDERED: MIRTAZAPINE7.5 MG PO (15:33)
[2022-01-08] MEDS ORDERED: ATIVAN0.5 M1 PO (15:33)
--- NOTE | 2022-01-08 15:57 | EKG ---
[place] [id number] ELECTROCARDIOGRAM REPORT Name: KALA JARAMILLO Room: [facility]#: [id number] Admission: 01/08/22 Attend Phys: Discharge: Date of : 31 Date of Service: 01/08/22 1541 Report #: [id number] THIS REPORT FOR: //name// [facility] ED Test Date: 2022-01-08 Test Time: 15:41:06 Pat Name: KALA JARAMILLO Department: Room: Gender: F [employer]: CASH : 1935 Requested By: Tarun Patrick Order Number: [id number] MD: Oc Mendoza Measurements Intervals [place] Rate: 85 P: -50 TX: 165 QRS: -14 QRSD: 111 T: 27 QT: 407 QTc: 484 Interpretive Statements Sinus or ectopic atrial rhythm frequent and consecutive pac's Probable septal infarct, old Compared to ECG 07/14/2019 11:54:45 pac's now present Left ventricular hypertrophy no longer present Electronically Signed On 01-08-2022 15:56:58 [employer] IN[employer] by Oc Mendoza [email or web address] <ELECTRONICALLY SIGNED> By: Oc Mendoza MD, FAC 01/08/22 1556 1541 1541 Oc Mendoza MD, [facility] /EPI
[2022-01-08 16:30] LABS: URINE BILIRUBIN NEGATIVE (Negative); URINE BLOOD TRACE (Negative); URINE CLARITY SL CLOUDY; URINE COLOR YELLOW; URINE GLUCOSE-RANDOM NEGATIVE (Negative); URINE KETONES TRACE (Negative); URINE LEUKOCYTES-REFLEX 1+ (Negative); URINE NITRITE-REFLEX NEGATIVE (Negative); URINE PROTEIN NEGATIVE (Negative)
[2022-01-08 16:38] LABS: BACTERIA-REFLEX 1-9 Few /HPF (None Seen); SQUAMOUS 4-10 Moderate /LPF (0-3); URINE RBC 0-2 Rare /HPF (0-2); URINE WBC-REFLEX 0-5 Rare /HPF (0-5)
[2022-01-08 16:39] LABS: CASTS None Seen /LPF (None Seen); CRYSTALS None Seen /LPF (None Seen)
[2022-01-08 16:41] LABS: ABSOLUTE EOSINOPHILS 0.1 thou/uL (0.0-0.7); ABSOLUTE LYMPHOCYTES 0.8 thou/uL (0.8-5.3); ABSOLUTE MONOCYTES 0.7 thou/uL (0.0-1.2); BASOPHILS 0.5 %; EOSINOPHILS 1.6 %; HEMATOCRIT 43.2 % (37.0-47.0); LYMPHOCYTES 12.5 %; MCHC 32.3 g/dL (28.0-37.0); MCV 92.9 fL (80.0-100.0); MONOCYTES 9.9 %; MPV 7.6 fl. (7.2-11.1); NUCLEATED RBCS 0 /100WBC; PLATELET COUNT* 314 thou/uL (150-400); POLYS 75.5 %; RBC 4.66 mil/uL (4.20-5.00); RDW-CV 14.3 % (10.5-14.5); WBC 6.7 thou/uL (4.0-11.0)
[2022-01-08 16:52] LABS: CALCIUM 8.8 mg/dL (8.5-10.1); CREATININE 0.9 mg/dL (0.6-1.3); POTASSIUM 4.1 mmol/L (3.5-5.1)
[2022-01-08 17:02] LABS: ALBUMIN 3.6 g/dL (3.4-5.0); TOTAL BILIRUBIN 0.4 mg/dL (<0.1-1.0); TOTAL PROTEIN 7.6 g/dL (6.4-8.2)
[2022-01-08 17:58] VITALS: BP 123/66
== END 2022-01-08 17:59 | disposition home or self-care (01) ==
LOC: M.ERS 15:24
PROVIDERS: Family Medicine
DX: S92.411A Displaced fracture of proximal phalanx of right great toe, initial encounter for closed fracture (principal); F03.90 Unspecified dementia, unspecified severity, without behavioral disturbance, psychotic disturbance, mood disturbance, and anxiety; Z98.82 Breast implant status; Z96.651 Presence of right artificial knee joint; Z79.899 Other long term (current) drug therapy; W18.39XA Other fall on same level, initial encounter; Y93.89 Activity, other specified; Y92.128 Other place in nursing home as the place of occurrence of the external cause; Y99.8 Other external cause status